=== PATIENT | female | born 1980 | race Hispanic/Latino ===

== ENCOUNTER 2018-07-25 10:46 | Emergency (ER) | payer OTHER ==
[2018-07-25] MEDS ORDERED: LIDOCAINE 1% MPF 5 ML VIAL ONE (11:46)
[2018-07-25] MEDS ORDERED: TETANUS & DIPHTHERIA TOX,ADULT 0.5 ML VIAL ONE (11:46)
--- NOTE | 2018-07-25 12:13 | ER ---
Nurse's Notes [facility] Name: Arelis Mirza Age: 37 yrs Sex: Female : 1980 Arrival Date: 07/25/2018 Time: 10:47 Bed Treatment Private MD: Diagnosis: Hand Laceration Presentation: 07/25 10:59 Presenting complaint: Patient states: "i was going to make guacamole and the the knife aj1 got my hand" Laceration to left hand. Transition of care: patient was not received from another setting of care. Complicating Factors: There are no complicating factors for this patient. Onset of symptoms was July 24, 2018 at 20:00. Risk Assessment: Do you want to hurt yourself or someone else? Patient reports no desire to harm self or others. Initial Sepsis Screen: Does the patient meet any 2 criteria? No. Patient's initial sepsis screen is negative. Does the patient have a suspected source of infection? No. Patient's initial sepsis screen is negative. Care prior to arrival: None. 10:59 Method Of Arrival: Ambulatory aj 10:59 Acuity: RADHA 4 aj1 Triage Assessment: 11:01 General: Appears in no apparent distress. comfortable, Behavior is calm, cooperative, aj1 appropriate for age. Pain: Complains of pain in palm of left hand Pain currently is 3 out of 10 on a pain scale. Neuro: Level of Consciousness is awake, alert, obeys commands, Oriented to person, place, time, situation. Cardiovascular: Patient's skin is warm and dry. Respiratory: Airway is patent Respiratory effort is even, unlabored, Respiratory pattern is regular, symmetrical. Injury Description: Laceration sustained to palm of left hand was sustained 12-24 hours ago. 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 - Social history:: Smoking status: Patient/guardian denies using tobacco. - Ebola Screening: : Patient denies travel to an Ebola-affected area in the 21 days before illness onset. Screenin:18 Abuse screen: Denies threats or abuse. Denies injuries from another. Nutritional ss screening: No deficits noted. Tuberculosis screening: Never had TB. Fall Risk None identified. Assessment: 11:15 General: Appears in no apparent distress. comfortable, Behavior is calm, cooperative. ss Pain: Complains of pain in palm of left hand Pain currently is 3 out of 10 on a pain scale. Quality of pain is described as burning, tender, Is continuous. Neuro: Level of Consciousness is awake, alert, obeys commands, Oriented to person, place, time, situation. Cardiovascular: Capillary refill < 3 seconds is brisk in bilateral fingers. Respiratory: Airway is patent Respiratory effort is even, unlabored, Respiratory pattern is regular, symmetrical. GI: Patient currently denies diarrhea, nausea, vomiting. EENT: Nares are clear Oral mucosa is moist. Throat is clear. Derm: Skin is intact, is healthy with good turgor, Skin is pink, warm \\T\\ dry. normal. Musculoskeletal: Circulation, motion, and sensation intact. Range of motion: intact in all extremities, Swelling absent. Injury Description: Laceration sustained to palm of left hand is 0.5 to 2.5 cm long, was sustained 1-2 hours ago. is bleeding no active bleeding noted. Vital Signs: 11:01 BP 135 / 71; Pulse 78; Resp 18; Temp 98.4; Pulse Ox 100% on R/A; Weight 73.48 kg (R); aj1 Height 5 ft. 3 in. (160.02 cm) (R); Pain 3/10; 11:01 Body Mass Index 28.70 (73.48 kg, 160.02 cm) aj1 ED Course: 10:47 Patient arrived in ED. as 11:00 Triage completed. aj1 11:01 Arm band placed on Patient placed in waiting room, Patient notified of wait time. aj1 11:17 Kun Gonzales PA is PHCP. [facility] 11:17 Adonis Jimenez MD is Attending Physician. [facility] 11:18 Savannah Knight, RINKU is Primary Nurse. ss 11:18 Patient has correct armband on for positive identification. Bed in low position. Call ss light in reach. 12:13 Assist provider with laceration repair on palm of left hand that was 2.5 cm. or less ss using sutures. Set up tray. Performed by Kun COLIN Dressed with Kerlix, non adherent dressing Patient tolerated well. Patient did not have IV access during this emergency room visit. Administered Medications: 11:37 Drug: Tetanus-Diphtheria Toxoid Adult 0.5 ml {[employer]: [employer]. Exp: ss 05/20/2020. Lot #: [id number]. } Route: IM; Site: right deltoid; 12:03 Follow up: Response: No adverse reaction 12:03 Drug: Lidocaine (1 %) 5 mg {Note: administered by DIXIE Hunter to wound.} Route: ss Infiltration; Outcome: 12:12 Discharge ordered by . jaylyn 12:13 Discharged to home ambulatory, with family. 12:13 Condition: good 12:13 Discharge instructions given to patient, family, Instructed on discharge instructions, follow up and referral plans. medication usage, Demonstrated understanding of instructions, follow-up care. 12:26 Patient left the ED. Signatures: Hanh Stockton, RN RN aj1 Kun Gonzales PA PA jmm Martinez, Amelia as Smirch, Shelby, RINKU RN
--- NOTE | 2018-07-25 12:13 | EDPHYS ---
Physician Documentation [facility] Name: Arelis Mirza Age: 37 yrs Sex: Female : 1980 Arrival Date: 07/25/2018 Time: 10:47 Bed Treatment Private MD: ED Physician Adonis Jimenez HPI: 07/25 11:31 This 37 yrs old Female presents to ER via Ambulatory with complaints of jmm Laceration To Hand. 11:31 The patient has a laceration occurred at home. Onset: The symptoms/episode jmm began/occurred acutely. Associated signs and symptoms: Pertinent negatives: loss of consciousness, numbness distal to injury, suspected foreign body. This is a 37 year old female with a history of hypothyroidism that presents to the ED with complaints of laceration to her left hand. Patient accidently cut herself while cutting avocados. Patient is unsure of tetanus immunization status. . 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 - Social history:: Smoking status: Patient/guardian denies using tobacco. - Ebola Screening: : Patient denies travel to an Ebola-affected area in the 21 days before illness onset. ROS: 11:31 Constitutional: Negative for fever, chills, and weight loss, Cardiovascular: Negative jmm for chest pain, palpitations, and edema, Respiratory: Negative for shortness of breath, cough, wheezing, and pleuritic chest pain. 11:31 MS/extremity: Positive for laceration. 11:31 Skin: Positive for laceration(s). 11:31 All other systems are negative. Exam: 11:31 Constitutional: This is a well developed, well nourished patient who is awake, alert, jmm and in no acute distress. Head/Face: atraumatic. Eyes: EOMI, no conjunctival erythema appreciated ENT: Moist Mucus Membranes Neck: Trachea midline, Supple Chest/axilla: Normal chest wall appearance and motion. Cardiovascular: Regular rate and rhythm. No edema appreciated Respiratory: Normal respirations, no respiratory distress appreciated Abdomen/GI: Non distended, soft Back: Normal ROM 11:31 Musculoskeletal/extremity: FROM noted to the left hand, full strength against resistance. NVI. 11:31 Skin: 3 cm laceration noted to the left thenar region of the palm. no active bleeding is appreciated. 11:31 Neuro: Orientation: is normal, Mentation: is normal, Memory: is normal. 11:31 Psych: Behavior/mood is pleasant, cooperative. Vital Signs: 11:01 BP 135 / 71; Pulse 78; Resp 18; Temp 98.4; Pulse Ox 100% on R/A; Weight 73.48 kg (R); aj1 Height 5 ft. 3 in. (160.02 cm) (R); Pain 3/10; 11:01 Body Mass Index 28.70 (73.48 kg, 160.02 cm) aj1 Laceration: 12:10 Wound Repair of 3cm ( 1.2in ) subcutaneous laceration to palm of left hand. Distal jmm neuro/vascular/tendon intact. Anesthesia: Local anesthetic administered with 5 mls of 1% lidocaine. Wound prep: Moderate cleansing with betadine by me. Skin closed with 5 5-0 Prolene using simple sutures and sterile technique. Dressed with non-adherent dressing. Patient tolerated well. MDM: 11:22 Patient medically screened. [facility] 12:10 Data reviewed: vital signs, nurses notes. Counseling: I had a detailed discussion with jaylyn the patient and/or guardian regarding: the historical points, exam findings, and any diagnostic results supporting the discharge/admit diagnosis, the need for outpatient follow up, to return to the emergency department if symptoms worsen or persist or if there are any questions or concerns that arise at home. ED course: Patient given wound infection return precautions. Patient understood and agrees with the plan of care. . Administered Medications: 11:37 Drug: Tetanus-Diphtheria Toxoid Adult 0.5 ml {[employer]: [employer]. Exp: ss 05/20/2020. Lot #: [id number]. } Route: IM; Site: right deltoid; 12:03 Follow up: Response: No adverse reaction 12:03 Drug: Lidocaine (1 %) 5 mg {Note: administered by DIXIE Hunter to wound.} Route: ss Infiltration; Disposition: 07/26 06:45 Co-signature as Attending Physician, Adonis Jimenez MD I agree with the assessment and susie plan of care. Disposition: 07/25/18 12:12 Discharged to Home. Impression: Hand Laceration. - Condition is Stable. - Discharge Instructions: Laceration Care, Adult. - Medication Reconciliation Form, Thank You Letter, Antibiotic Education, Prescription Opioid Use form. - Follow up: Private Physician; When: 1 week; Reason: Recheck today's complaints, Continuance of care, Staple/Suture removal, Re-evaluation by your physician. Signatures: Hanh Stockton RN RN aj1 Adonis Jimenez MD MD cha Mickail, Joel, PA PA Savannah Orozco RN RN ss Corrections: (The following items were deleted from the chart) 07/25 12:26 12:12 07/25/2018 12:12 Discharged to Home. Impression: Hand Laceration. Condition is ss Stable. Forms are Medication Reconciliation Form, Thank You Letter, Antibiotic Education, Prescription Opioid Use. Follow up: Private Physician; When: 1 week; Reason: Recheck today's complaints, Continuance of care, Staple/Suture removal, Re-evaluation by your physician. jaylyn
[2018-07-25 12:31] VITALS: BP 135/71; TEMP 98.4; O2SAT 100
== END 2018-07-25 12:26 | disposition home or self-care (01) ==
LOC: ER 10:46
PROC: 0JQK0ZZ Repair Left Hand Subcutaneous Tissue and Fascia, Open Approach (ICD-10-PCS; principal; 2018-07-25)
DX: S61.412A Laceration without foreign body of left hand, initial encounter (principal); W26.0XXA Contact with knife, initial encounter; Y93.G3 Activity, cooking and baking; Y92.000 Kitchen of unspecified non-institutional (private) residence as the place of occurrence of the external cause; Z23 Encounter for immunization
CPT/HCPCS: 90471; 90714; 99283